=== PATIENT | female | born 1940 | race Caucasian/White ===

== ENCOUNTER 2017-09-26 07:50 | Inpatient (IN) | payer OTHER, MEDICARE ==
[~2017-09-26 07:50] MED LIST: POVIDONE-IODINE 20 ML in SODIUM CL IRRIG SOLUTION 500 ML IRR ONE; ROPIVACAINE 0.2% 80 MG, EPINEPHrine 0.2 MG, KETOROLAC TROMETHAMINE 30 MG in SYRINGE 0 ML IU ONE; TRANEXAMIC ACID 880 MG in NS 100 ML IV ONE; VANCOMYCIN 1 GM VIAL ONE; ceFAZolin 1 GM/5 ML SYR ONE
[2017-09-26] MEDS ORDERED: FAMOTIDINE 20 MG TAB PO ONE (08:08)
[2017-09-26] MEDS ORDERED: ceFAZolin 2 GM/SWFI 2 GM/20 ML SYR IVP ONE (08:08)
[2017-09-26] MEDS ORDERED: ACETAMINOPHEN 325 MG TAB PO ONE (08:08)
[2017-09-26] MEDS ORDERED: ONDANSETRON DISINTEGRATING 4 MG TAB PO ONE (08:08)
[2017-09-26] MEDS ORDERED: DEXAMETHASONE 4 MG/ML VIAL IVP ONE (08:08)
[2017-09-26] MEDS ORDERED: GABAPENTIN 300 MG CAP PO ONE (08:08)
[2017-09-26] MEDS ORDERED: LR 1,000 ML IV ONE (08:24)
[2017-09-26] MEDS ORDERED: LIDOCAINE 1% 2 ML INJ ID PRN (08:24)
--- NOTE | 2017-09-26 08:56 | PDHPUP ---
History & Physical Update H&P update statement: This history and physical update is based on an assessment of the patient which was completed after admission or registration (within 24 hours), but prior to the surgery/procedure. H&P update: H&P reviewed & patient examined, no change in patient's condition since H&P completed
[2017-09-26] MEDS ORDERED: MIDAZOLAM 2 MG/2 ML VIAL ONE (09:49)
[2017-09-26] MEDS ORDERED: PROPOFOL/EMULSION 500 MG/50 ML BOTTLE IV ONE (10:00)
[2017-09-26] MEDS ORDERED: NALOXONE HCL 0.4 MG/ML INJ IVP PRN (10:22)
[2017-09-26] MEDS ORDERED: fentaNYL 100 MCG/2 ML INJ IVP PRN (10:22)
[2017-09-26] MEDS ORDERED: ONDANSETRON 4 MG/2 ML VIAL IVP PRN ×2 (10:22→11:59)
[2017-09-26] MEDS ORDERED: MEPERIDINE 25 MG/ML SYR IVP PRN (10:22)
[2017-09-26] MEDS ORDERED: LR 500 ML IV PRN (10:22)
--- NOTE | 2017-09-26 10:22 | PDANEPAE ---
ANE History of Present Illness 76 year old with PMH significant for HTN (well controlled on current medical regimen), GERDS well controlled on prilosec, and hyperlipidemia. She denies URI last 6 weeks and has had no difficulties with anesthesia in the past. ANE Past Medical History - Cardiovascular History Hx Hypertension: Yes Hx Arrhythmias: Yes Hx Chest Pain: No Hx Coronary Artery / Peripheral Vascular Disease: Yes Hx CHF / Valvular Disease: No Hx Palpitations: No Cardiovascular History Comment: BRADYCARDIA. PACEMAKER - Pulmonary History Hx COPD: No Hx Asthma/Reactive Airway Disease: No Hx Recent Upper Respiratory Infection: No Hx Oxygen in Use at Home: No Hx Sleep Apnea: Yes Sleep Apnea Screening Result - Last Documented: Positive Pulmonary History Comment: POS SLEEP APNEA - NO CPAP - Neurologic History Hx Cerebrovascular Accident: No Hx Seizures: No Hx Dementia: No - Endocrine History Hx Diabetes: Yes Endocrine History Comment: BORDERLINE DM-METFORMIN - Renal History Hx Renal Disorders: No - Liver History Hx Hepatic Disorders: No Hepatic History Comment: STEPHANIE - Neurological & Psychiatric Hx Hx Neurological and Psychiatric Disorders: No Neurological / Psychiatric History Comment: ANXIETY & DEPRESSION - Cancer History Hx Cancer: No - Congenital Disorder History Hx Congenital Disorders: No - GI History Hx Gastrointestinal Disorders: Yes Gastrointestinal History Comment: ACID REFLUX - Other Health History Other Health History: NEG - Chronic Pain History Chronic Pain: Yes (KNEE PAIN) - Surgical History Prior Surgeries: CHOLECYSTECTOMY. PACEMAKER -2014 IMPLANT AT [facility] Review of Systems Review of Systems: - Exercise capacity METS (RN): 4 METS - Pacemaker Pacemaker Type: Permanent Pacer/Defib Pacemaker Director Commercial Sales: [employer] Date Pacemaker Last Checked: 06/2017 ANE Patient History - Allergies Allergies/Adverse Reactions: CHOCOLATE/ COFFEE Allergy (Intermediate, Uncoded 09/13/12 15:08) Diarrhea - Home Medications Home Medications: Aspirin [Aspirin 81mg (OTC)] 81 mg PO DAILY 07/31/12 [Last Taken 09/19/17] Citalopram [celeXA 20 MG (RX)] 10 mg PO DAILY 07/31/12 [Last Taken 09/26/17] Hydrochlorothiazide [Hydrochlorothiazide 25 MG (RX)] 25 mg PO DAILY 07/31/12 [ Last Taken 09/26/17] Omeprazole Magnesium [Prilosec Otc] 20 mg PO DAILY 07/31/12 [Last Taken 09/26/17 ] Simvastatin [Zocor 40 mg (RX)] 40 mg PO HS 07/31/12 [Last Taken 09/25/17] amLODIPine BESYLATE [Norvasc 10 mg (RX)] 10 mg PO DAILY 07/31/12 [Last Taken ] metFORMIN HCL [Metformin HCl] 1,000 mg PO BIDMEAL 08/31/17 [Last Taken 09/23/17] - Smoking Hx Smoking Status: Former smoker - Family Anes Hx Family Hx Anesthesia Complications: NEG ANE Labs/Vital Signs - Labs Result Diagrams: 09/26/17 08:58 - Vital Signs Blood Pressure: 157/99 Heart Rate: 73 Respiratory Rate: 16 O2 Sat (%): 97 Height: 172.72 cm Weight: 87.543 kg ANE Physical Exam - Airway Neck exam: FROM Mallampati Score: Class 1 Mouth exam: poor dentition - Pulmonary Pulmonary: no respiratory distress - Cardiovascular Cardiovascular: regular rate and rhythym - ASA Status ASA Status: II ANE Anesthesia Plan Anesthesia Plan: MAC, spinal Regional Anesthesia: adductor canal FNB
--- NOTE | 2017-09-26 11:37 | POSTOPPROG ---
Post Op Note Date of Operation: 09/26/17 Surgeon: Jono West Erp Technical Lead: Adriano Anesthesiologist: Scott Rodrigez Anesthesia: IV Sedation, Spinal Post-op Diagnosis: Right knee severe degenerative arthritis. Procedure: Right total knee arthroplasty Inf/Abcess present in the surg proc area at time of surgery?: No EBL: 50-100 (Adductor canal block in PACU)
[2017-09-26] MEDS ORDERED: ROPIVACAINE HCL 150 MG/30 ML INJ ONE (11:39)
[2017-09-26] MEDS ORDERED: diphenhydrAMINE 25 MG CAP PO PRN (11:59)
[2017-09-26] MEDS ORDERED: LACTULOSE 20 GM/30 ML UDCUP PO PRN (11:59)
[2017-09-26] MEDS ORDERED: traMADol 50 MG TAB PO PRN (11:59)
[2017-09-26] MEDS ORDERED: TEMAZEPAM 15 MG CAP PO PRN (11:59)
[2017-09-26] MEDS ORDERED: MAGNESIUM HYDROXIDE 30 ML UDCUP PO PRN (11:59)
[2017-09-26] MEDS ORDERED: POLYETHYLENE GLYCOL 3350 17 GM PKT PO PRN (11:59)
[2017-09-26] MEDS ORDERED: BISACODYL 10 MG SUPP PR PRN (11:59)
[2017-09-26] MEDS ORDERED: PROMETHAZINE HCL 25 MG SUPPR PR PRN (11:59)
[2017-09-26] MEDS ORDERED: PROMETHAZINE HCL 25 MG/ML INJ IVP PRN (11:59)
[2017-09-26] MEDS ORDERED: KETOROLAC 30 MG/1 ML SDV IVP PRN (11:59)
[2017-09-26] MEDS ORDERED: NS 500 ML IV PRN (11:59)
[2017-09-26] MEDS ORDERED: oxyCODONE IR 5 MG TAB PO PRN (11:59)
[2017-09-26] MEDS ORDERED: ONDANSETRON DISINTEGRATING 4 MG TAB PO PRN (11:59)
[2017-09-26] MEDS ORDERED: CYCLOBENZAPRINE 10 MG TAB PO PRN (11:59)
[2017-09-26] MEDS ORDERED: DIPHENOXYLATE/ATROPINE LOMOTIL 1 TAB PO PRN (11:59)
[2017-09-26] MEDS ORDERED: LR 1,000 ML IV SCH (12:00)
--- NOTE | 2017-09-26 12:27 | GOP ---
[f rep st] OPERATIVE REPORT DATE OF OPERATION: 09/26/2017 SURGEON: Jono West MD LOAN TELLER: 1. Dale Ruiz PA-C. 2. Donnie Hargrove CFA. ANESTHESIA: Combination of Marcaine spinal, IV sedation, and adductor canal block. ANESTHESIOLOGIST: Anna Rodrigez MD PREOPERATIVE DIAGNOSIS: Right knee degenerative arthritis with varus deformity. POSTOPERATIVE DIAGNOSIS: Right knee degenerative arthritis with varus deformity. PROCEDURE PERFORMED: Right total knee arthroplasty, cemented, Cartwright [employer] Nephew Journey II, posterior s tabilized. FINDINGS: DESCRIPTION OF PROCEDURE: The patient was given 2 g of IV Ancef preoperatively within 60 minutes of surgery. She also received IV tranexamic acid at a dose of 10 mg/kg. She was placed on the operatin g room table and given spinal anesthesia with Marcaine by Dr. Rodrigez. She was then placed supine and given IV sedation. A Churchill catheter was not used. She wore a JASVIR stocking and SCD on the nonoperati ve leg. A bolster was placed under her right hip to prevent excessive external rotation of the leg. Her right lower extremity was prepped with ChloraPrep from the upper thigh tourniquet to the tips of the toes. It was draped free using sterile sheets, stockinette, and Ioban plastic adhesive drape. The lower leg was wrapped with compressive Coban. The leg was exsanguinated with elevation and a 6-i nch compressive wrap, and the pneumatic tourniquet was inflated to 275 mmHg. The World Health Organization time-out was performed to verify the correct patient identity and the c orrect surgical side and site. The [place] time-out was also performed. The Inspiratoayo leg holding device was sterilely attached to the operating room table and used throughout the procedure to help position the knee. A straight midline incision made centered on the patella. Subcutaneous tissues were sharply divided, and hemostasis was obtained using electrocautery. A media l subcutaneous flap was developed, and the capsule and synovium were opened in medial parapatellar fa shion. Extensive degenerative changes were present in her medial compartment and in the patellofemor al joint. The medial capsule and periosteum were elevated off the rim and the medial tibial plateau all the way around to the posteromedial corner. Her medial collateral ligament was released enough t o balance the medial side of the knee. In order to improve exposure, her patella was prepared first. The original thickness of the patella was measured. Peripheral osteophytes were removed. I cut a flat surface on the back of the patella. It was sized for a 38 mm resurfacing component. I removed enough bone from the patella, such that the remaining bone plus the thickness of the patellar component, recreated the original thickness of the patella. The composite thickness was 23 mm. The intramedullary alignment guide system was used to set up the distal femoral cut. The distal femu r was cut in 6 degrees of valgus. Because of a slight preoperative flexion contracture, I made a +2 mm cut on the distal femur. The sizing jig was used to determine proper femoral sizing. She was siz ed for a size 6 femoral component. I shifted the cutting block anteriorly 2 mm. I recognized that I still slightly notched the lateral anterior cortex of the femur. However, this was unavoidable. A size 7 femoral component was too large. The 5-in-1 cutting block was applied, and the anterior and p osterior condylar cuts and chamfer cuts were made. The final jig was used to remove the central port ion of the distal femur to accommodate the posterior stabilized femoral component. I was careful to determine proper rotation by referencing off [place] line and other bony landmarks. Each cut was c hecked for accuracy before and after it was made. The femur was sized for a size 6 posterior stabili zed component. Next, the tibia was prepared. The proximal tibial cut was made using the extramedullary alignment gu michelle system. The cut was made in a few degrees of posterior slope. My initial cut was leaving her in too much varus. I recut the proximal tibia. I then was able to achieve correct varus/valgus alignm ent. The posterior compartment was cleared of meniscal remnants. Osteophytes were removed from the back of the femoral condyles. I checked the flexion and extension gaps, and they were equal, balance d and rectangular. The tibia was sized for a size 5 component. With the trial components in place, I selected a 10 mm polyethylene posterior stabilized tibial insert. The knee came to full extension and flexed to 120 degrees. There was no overstuffing in flexion. Her collateral ligaments were stab le and balanced in 90 degrees of flexion and full extension. The trial patellar button was applied. She had mild lateral tilt. I did a very limited lateral release. After that, tracking was very goo d without digital pressure. 40 cc of the joint anesthetic cocktail were injected into the posterior capsule, the periarticular st ructures, and the quadriceps muscle and tendon areas, as well as the subcutaneous tissues along the s kin edges. A second dose of IV tranexamic acid was given at a dose of 10 mg/kg. The surfaces were prepared for cementing. They were carefully cleaned with the pulsating lavage irri gation and thoroughly dried. The CarboJet device was used to blow dry the cancellous surfaces. A do uble batch of high-viscosity methylmethacrylate cement with 2 g of powdered vancomycin added was mixe d. While it was still in a doughy state, all [address] components were cemented in place. Excess cement was removed before it hardened. The 10 mm trial tibial insert was re-tried and was the proper thickness . The actual component was inserted and locked into place. The knee was thoroughly irrigated 1 dorothy l time with a dilute Betadine solution. The tourniquet was deflated and the total tourniquet time was 63 minutes. The vastus medialis portion of the extensor mechanism was repaired with several interrupted figure-of -eight #2 FiberWire sutures. The capsule and synovium were closed first with multiple interrupted fi psro-en-wrxby 0 PDS sutures, followed by a running #2 barbed Ethicon Stratafix PDO suture. The subcu taneous tissues were closed with a running 0 barbed Ethicon Stratafix Monoderm suture. The skin was closed with a running 3-0 barbed Ethicon Stratafix Monoderm subcuticular suture. The skin was sealed with half-inch Steri-Strips. The wound was covered with a large Mepilex waterproof sterile surgical dressing and a 6-inch compressive wrap. A long-leg JASVIR stocking and SCD were applied, followed by t he cooling device. She wore a stocking and SCD on the opposite leg during the procedure. I used a size 6 cemented Cartwright & Nephew Oxinium posterior stabilized femoral component, a size 5 ceme nted tibial base plate, a 10 mm posterior stabilized tibial insert, and a 38 mm cemented, round. All- polyethylene resurfacing patellar component. The estimated blood loss following deflation of the tourniquet was about 100 cc. The sponge and needle count were correct on 2 occasions. She was awakened from anesthesia, transferred to her hospital [facility], and taken to PACU in satisfacto ry condition. There were no recognized intraoperative complications. In the PACU, for additional po stoperative pain control, Dr. Rodrigez performed an adductor canal block. Maurice Ruiz and Donnie Hargrove acted as surgical assistants. Their assistance was a medical necess ity for safe completion of the procedure. Copy requested to: Jitendra De Anda MD /[id number]/MODL
--- NOTE | 2017-09-26 13:18 | POSTANESTH ---
Post Anesthetic Evaluation Cardiovascular Status: Normal, Stable Respiratory Status: Normal, Stable Level of Consciousness/Mental Status: Can Participate in Eval Pain Control: Adequate, Prn Tx Ordered Nausea/Vomiting Control: Adequate, Prn Tx Ordered
[2017-09-26] MEDS ORDERED: ceFAZolin 2 GM/DEXTROSE 100 ML IV SCH (14:00)
[2017-09-26] MEDS: ACETAMINOPHEN 325 MG TAB PO SCH ×3 (15:01→23:01)
[2017-09-26] MEDS: ceFAZolin 2 GM/SWFI 2 GM/20 ML SYR IVP SCH (17:24)
[2017-09-26] MEDS: metFORMIN HCL 500 MG TAB PO SCH (17:24)
[2017-09-26] MEDS ORDERED: ATORVASTATIN CALCIUM 20 MG TAB PO SCH (21:00)
[2017-09-26] MEDS ORDERED: NON-FORMULARY NEW DRUG (Simvastatin [Zocor 40 Mg] 40 MG) PO SCH (21:00)
[2017-09-26] MEDS: SENNOSIDES/DOCUSATE SODIUM TAB PO SCH (21:48)
[2017-09-26] MEDS: FAMOTIDINE 20 MG TAB PO SCH (21:48)
[2017-09-27] MEDS: ceFAZolin 2 GM/SWFI 2 GM/20 ML SYR IVP SCH (00:26)
[2017-09-27] MEDS: ACETAMINOPHEN 325 MG TAB PO SCH (05:39)
--- NOTE | 2017-09-27 07:33 | SOAPPROG ---
SOAP Progress Note Assessment/Plan: Assessment: Afebrile. Awake and alert. Mild pain so far. Has walked in [place]. H/H is good. Films look good. Dsg is dry. Plan:Pt. was unsafe to go home yesterday. DC today. Her daughter will be staying with her. 09/27/17 07:29 Objective: Vital Signs Temp Pulse Resp BP Pulse Ox 36.9 C 62 18 129/81 H 95 09/27/17 04:00 09/27/17 04:00 09/27/17 04:00 09/27/17 04:00 09/27/17 04:00 Laboratory Results 09/27/17 04:45 09/26/17 08:58 09/26/17 09/27/17 09/28/17 05:59 05:59 05:59 Intake Total 2195 Output Total 9920 Balance 295 ICD10 Worksheet Patient Problems: Problems Problem Status Onset Osteoarthritis of right knee Acute
--- NOTE | 2017-09-27 07:35 | PDIAF ---
- Diagnosis Diagnosis: R knee OA Code Status: Full Code - Medication Management Discharge Medications: Medications to Continue on Transfer Citalopram [celeXA 20 MG (RX)] 10 mg PO DAILY 07/31/12 [Last Taken 09/26/17] Hydrochlorothiazide [HCTZ (*)] 25 mg PO DAILY 07/31/12 [Last Taken 09/26/17] Omeprazole Magnesium [Prilosec Otc] 20 mg PO DAILY 07/31/12 [Last Taken 09/26/17 ] Simvastatin [Zocor 40 mg] 40 mg PO HS 07/31/12 [Last Taken 09/25/17] amLODIPine BESYLATE [Norvasc 10 mg (*)] 10 mg PO DAILY 07/31/12 [Last Taken ] metFORMIN HCL [Metformin HCl] 1,000 mg PO BIDMEAL 08/31/17 [Last Taken 09/23/17] Acetaminophen [Tylenol 325mg (*)] 650 mg PO Q6HRS tab 09/27/17 [Last Taken Unknown] Enoxaparin [Lovenox 40 MG (*)] 40 mg SC DAILY #30 syr 09/27/17 [Last Taken Unknown] Ondansetron Odt [Zofran Odt 4 mg (*)] 4 mg PO Q4HRS PRN tab 09/27/17 [Last Taken Unknown] Sennosides/Docusate Sodium [Senokot-S] 1 - 2 tab PO BID tab 09/27/17 [Last Taken Unknown] oxyCODONE IR [Oxycodone Ir (*)] 5 - 10 mg PO Q3HRS PRN tab 09/27/17 [Last Taken Unknown] traMADol [Ultram 50 mg (*)] 50 mg PO Q6HRS PRN tab 09/27/17 [Last Taken Unknown ] Discharge Medications: Refer to the Discharge Home Medication list for PRN reason. PICC Care - Routine: N/A - Orders Services needed: Home Care, Physical Therapy Home Care Face to Face: I certify that this patient was under my care and that I had the required [id number] encounter meeting the encounter requirements on the discharge day. My findings support the fact that the patient is homebound as defined in Home Care Face to Face Continued: CMS Chapter 7 Medicare Benefits Manual 30.1.1 , The condition of the patient is such that there exists a normal inability to leave home and consequently, leaving home would require a considerable and taxing effort. Diet Recommendation: no restrictions on diet Diet Texture: Regular Texture Diet Churchill: Not applicable Jose Luis Stockings Discontinue Date: 1 week Wound Care Instructions: keep clean and dry. You may shower. Activity/Weight Bearing Restrictions: as tolerated. Equipment: Zero knee while in bed as tolerated. - Follow Up Care Current Providers and Referrals: ALESSANDRO AMEZCUA [Primary Care Provider] - Jono West MD [Medical Doctor] - 10/11/17
[2017-09-27 07:45] VITALS: BP 146/78; PULSE 61; RESP 12; TEMP 97.6; O2SAT 96
--- NOTE | 2017-09-27 07:55 | GDS ---
[f rep st] DISCHARGE SUMMARY ADMISSION DIAGNOSIS: Right knee degenerative arthritis. DISCHARGE DIAGNOSIS: Right knee degenerative arthritis. OPERATION PERFORMED: 09/26/2017, right total knee arthroplasty. POSTOPERATIVE COMPLICATIONS: None. CONDITION ON DISCHARGE: Improved. DESCRIPTION OF HOSPITAL COURSE: The patient was admitted to the hospital on the morning of surgery. Her admission CBC, electrolytes, BUN, and creatinine were all normal. The same day, under a combina tion of Marcaine, spinal, IV sedation, and adductor canal block she underwent a right total knee arth roplasty. Postoperatively, she was treated with multimodal DVT prophylaxis, including Lovenox. On t he first postoperative day, her hemoglobin and hematocrit 12.0 and 34.3. She was seen by Physical bianca and made good progress with ambulation and stairs. She was unsafe to go home on the day of and required an overnight stay in the hospital for observation and additional physical therapy. DISPOSITION: The patient is discharged to her home. Her daughter will be staying with her. She lizy l have home physical therapy. Continue Lovenox 40 mg subcu daily for 30 days. Continue JASVIR stocking s for 1 week. She has prescriptions for oxycodone and tramadol for pain control. I will see her tequila k in the office on October 11, 2017. If there any problems, she is to call me at the office. Copy requested to: Jitendra De Anda MD /[id number]/MODL
[2017-09-27] MEDS: SENNOSIDES/DOCUSATE SODIUM TAB PO SCH (08:59)
[2017-09-27] MEDS: metFORMIN HCL 500 MG TAB PO SCH (08:59)
[2017-09-27] MEDS: FAMOTIDINE 20 MG TAB PO SCH (08:59)
[2017-09-27] MEDS ORDERED: ENOXAPARIN 40 MG/0.4 ML SYR SC SCH (09:00)
[2017-09-27] MEDS ORDERED: PANTOPRAZOLE SODIUM 40 MG TAB PO SCH (09:00)
[2017-09-27] MEDS ORDERED: HYDROCHLOROTHIAZIDE 25 MG TAB PO SCH (09:00)
[2017-09-27] MEDS ORDERED: CITALOPRAM 20 MG TAB PO SCH (09:00)
[2017-09-27] MEDS ORDERED: NON-FORMULARY NEW DRUG (Omeprazole Magnesium [Prilosec Otc] 20 MG) PO SCH (09:00)
--- NOTE | 2017-09-27 10:18 | ASMTCMCOM ---
CM Note CM Note Notes: Pt medically stable for d/c with [facility]. Orders sent in [employer]. Date Signed: 09/27/2017 10:18 AM Electronically Signed By:CHERYL Crowley
--- NOTE | 2017-09-27 11:24 | ASMTLACE ---
LACE Length of stay for Answers: 1 day current admission Acuity / Level of Answers: Yes Care: Did the patient have an inpatient admission? Comorbidities - select Answers: Diabetes (uncontrolled or all that apply controlled) # of Emergency department Answers: 0 visits in the last 6 months Score: 5 Date Signed: 09/27/2017 11:23 AM Electronically Signed By:CHERYL Crowley
--- NOTE | 2017-09-27 12:20 | ASDISCHSUM ---
Discharge Information Plan Status:Home with Home Health Medically Cleared to Leave: Discharge Date:09/27/2017 11:49 AM CM D/C Disposition:Home Health Service ADT D/C Disposition:[id number] Projected Discharge Date:09/27/2017 11:00 AM Transportation at D/C: Discharge Delay Reason: Follow-Up Date:09/27/2017 11:00 AM Discharge Slot: Final Diagnosis: Placement Information Referral Type:*Home Health Care Services Referral ID:[id number] Provider Name:[facility] Address 1:[address] Address 2: City:[place] Selection Factors: State:[place] Patient Contact Information Contact Name:RYAN Relationship:Daughter Address: City: [facility] Phone: [facility] [place] Code: Email: Financial Information Financial Class: Primary Plan Desc:MEDICARE INPATIENT Primary Plan Number:[id number] Secondary Plan Desc:AARP/MDR SUPPLEMENT Secondary Plan Number:[id number] Assessment Information [facility] CM Progress Note CM Note CM Note Notes: Pt medically stable for d/c with [place] [facility]. Orders sent in [employer]. Date Signed: 09/27/2017 10:18 AM Electronically Signed By:CHERYL Crowley LACE LACRosita Length of stay for Answers: 1 day current admission Acuity / Level of Answers: Yes Care: Did the patient have an inpatient admission? Comorbidities - select Answers: Diabetes (uncontrolled or all that apply controlled) # of Emergency department Answers: 0 visits in the last 6 months Score: 5 Date Signed: 09/27/2017 11:23 AM Electronically Signed By:CHERYL Crowley Intervention Information Intervention Type:*Incorrect Registration Date of Service:09/26/2017 04:56 PM Patient Type:Inpatient Staff Member:MICHELET Medina Courtney Hours: Discipline: Severity: Comment:
== END 2017-09-27 11:49 | disposition home health service (06) | DRG 470 ==
LOC: F3N 07:50
PROVIDERS: ADMIT Orthopaedic Surgery; ATTEND Orthopaedic Surgery
PROC: 0SRC0J9 Replacement of Right Knee Joint with Synthetic Substitute, Cemented, Open Approach (ICD-10-PCS; principal; 2017-09-26 09:15)
DX: M17.11 Unilateral primary osteoarthritis, right knee (principal); I10 Essential (primary) hypertension; G47.30 Sleep apnea, unspecified; E11.9 Type 2 diabetes mellitus without complications; K21.9 Gastro-esophageal reflux disease without esophagitis; E78.5 Hyperlipidemia, unspecified; Z95.0 Presence of cardiac pacemaker; Z79.84 Long term (current) use of oral hypoglycemic drugs
CPT/HCPCS: 97116-GP; 97161-GP; 97165-GO; 97530-GP; 97535-GO; C1713; G8978-GP-CI; G8978-GP-CJ; G8979-GP-CI; G8980-GP-CI; G8987-GO-CI; G8988-GO-CI; G8989-GO-CI; J0171; J0690; J1100; J1650; J1885; J2250; J2704; J2795; J3370